=== PATIENT | male | born 1955 | race Caucasian/White ===

== ENCOUNTER 2021-04-18 13:53 | Outpatient (REF) | payer OTHER, SELFPAY ==
[2021-04-18 14:17] LABS: COVID-19 Test Negative (Negative)
== END 2021-04-18 13:54 | disposition home or self-care (01) ==
LOC: HO.LAB 13:53
PROVIDERS: Visit Provider Internal Medicine
DX: Z20.822 Contact with and (suspected) exposure to COVID-19 (principal)
CPT/HCPCS: 36415; 87635; C9803

== ENCOUNTER 2022-03-11 10:32 | Emergency (ER) | payer OTHER, SELFPAY ==
--- NOTE | ~2022-03-11 | CT_ITS ---
EXAMINATION: EXAMINATION: CTA OF THE CHEST, ABDOMEN AND PELVIS WITH AND WITHOUT CONTRAST CT angio abdomen pelvis, CT angio chest aorta INDICATION: Male of 67 years with history of Reason for Exam abd pain radiating to back COMPARISON: Most recent CT of abdomen/pelvis: 11/02/2019. DESCRIPTION: Initial noncontrast localizing pin drafting machine tender images were obtained. Timing boluses at the level of the aortic arch and abdominal aorta were calculated. Subsequently, arterial phase multidetector volumetric imaging was performed through the chest, abdomen, and pelvis following the administration of 85 mL Omnipaque 350 intravenous contrast. No contrast reaction reported Maximal intensity projection vascular imaging was produced and reviewed. Images were evaluated on independent dedicated 3-D workstation and 3-D images were reconstructed with concurrent radiologist supervision and subsequently interpreted. This CT examination was performed using dose optimization techniques as appropriate, variously including the following: *Automated exposure control. *Adjustment of mA and/or kV according to patient size (this includes techniques or standardized protocols for targeted exams where dose is matched to indication/reason for exam, i.e., extremities or head). *Use of iterative reconstruction technique. Total exam dose-length product 1173 mGy-cm FINDINGS: THORACIC AORTA AND GREAT VESSELS: There is mild ascending aortic thoracic aneurysm measured 4.9 cm without evidence of aortic dissection, penetrating ulcer or aneurysm. A normal branching 3 vessel aortic arch is seen . The great vessels are patent. Minimal vascular calcifications are noted at the origins of the great vessels without evidence of significant stenosis. Mild scattered calcified atherosclerotic disease is seen throughout the thoracic aorta. PULMONARY ARTERIES: The exam was timed in the systemic arterial phase for evaluation of the aorta which limits assessment of the pulmonary arteries. No central pulmonary embolus. ABDOMINAL AORTA: Abdominal aorta reveals no evidence of aneurysm or dissection. The aortic bifurcation appears normal. MESENTERIC VESSELS: The celiac artery is normal in caliber without evidence of significant stenosis or aneurysm. The superior mesenteric artery is normal in caliber without evidence of significant stenosis or aneurysm. There is minimal narrowing at the origin of the inferior mesenteric artery with normal contrast opacification distally. RENAL ARTERIES: There are no atherosclerotic changes . ILIAC ARTERIES: The common arteries are normal in caliber bilaterally without evidence of stenosis or aneurysm. The external iliac arteries are normal in caliber bilaterally without evidence of significant stenosis or aneurysm. NONVASCULAR: LUNG: The trachea and mainstem bronchi are patent with no intraluminal lesion. Mild dependent bilateral atelectasis. No lobar consolidation. No suspicious mass. No pulmonary nodule. PLEURA: No pneumothorax. No pleural effusion. MEDIASTINUM: Normal heart size. No pericardial effusion. No hilar or mediastinal lymphadenopathy. CHEST WALL/AXILLA: No axillary or internal mammary lymphadenopathy. No chest wall mass seen. LIVER, GALLBLADDER, AND BILIARY TREE: The liver is normal in shape, size and attenuation. No focal hepatic lesion. No intrahepatic biliary ductal dilatation. The gallbladder demonstrates no obvious pericholecystic inflammatory changes or gallbladder wall thickening. No cholelithiasis. No perihepatic ascites. PANCREAS: Normal size. No definite mass, surrounding fluid, or inflammatory changes. SPLEEN: Normal size. No focal lesion. No perisplenic ascites. ADRENAL GLANDS: Normal; no mass. KIDNEYS AND URETERS: Right kidney is unremarkable. Left kidney revealed cortical upper pole exophytic 9.4 x 8.9 cm cyst. There is lower pole 1.3 x 1.2 cm cortical cyst. No renal calculi. GASTROINTESTINAL TRACT: Stomach and small bowel are non-dilated. No colonic wall thickening or pericolonic inflammatory changes. Normal appendix present. ABDOMINAL WALL: There is small fat-containing umbilical hernia and left inguinal hernia with herniation of colonic loop. There is partial obstruction of left colonic loop in the hernia. Patient is status post repair of left inguinal hernia with marked or solid mass. Examination is significant in the left side of the scrotum. LYMPH NODES: There are bilateral inguinal superficial lymph nodes present. BLADDER: Not fully distended, limiting its complete evaluation. No bladder wall thickening. No focal mass or bladder calculi. PELVIC VISCERA: Unremarkable. OSSEOUS STRUCTURES: No acute or suspicious osseous abnormality. CT/CT angio abdomen pelvis IMPRESSION: 1. Mild ascending aortic aneurysm, without evidence of dissection or aneurysmal dilatations in the descending aorta. 2. Large inguinal hernia on the left with herniation of significant amount of bowel possibly partially incarcerated in scrotum. Communication: By this report and phone call to CHUCK Gonzalez at 2:30 PM on 03/11/2022
--- NOTE | ~2022-03-11 | CT_ITS ---
EXAMINATION: CT CERVICAL SPINE AND CT BRAIN WITHOUT CONTRAST CLINICAL INFORMATION: Syncope. COMPARISON: None TECHNIQUE: 5 mm thin axial and reformatted 2 mm thin sagittal and coronal images of brain were obtained without contrast. 3 mm thin and reformatted 2 mm thin sagittal and coronal images of cervical spine were obtained without contrast. DLP: 1289 mGy-cm. FINDINGS: BRAIN: There is no acute intra-axial, extra-axial bleed, masses or midline shift. There is a hypodensity extending from the right centrum semiovale through the posterior limb of internal capsule to the right mary jane suggesting wallerian degeneration from old injury. There is lack of infarction in anterior limb of left internal capsule. Small lacunar infarction is also seen in the right para sagittal right frontal lobe. No acute infarction seen. There is diffuse periventricular hypodensity in both cerebral hemispheres likely small vessel ischemic changes. The lateral ventricles are enlarged and so are the cortical sulci. Bone windows reveal no calvarial abnormality. There is no scalp soft tissue abnormality. Bilateral paranasal sinuses and mastoid air cells are well-aerated. CERVICAL SPINE: There is maintained cervical lordosis. The vertebral heights and alignment is normal. There is loss of C4-C5, C5-C6 disc heights. The craniovertebral junction and the C1-C2 alignment is normal. No visible acute fracture, dislocation or subluxation seen. There is moderate left C3-C4 facet joint arthropathy. Mild uncovertebral hypertrophic changes are seen at C4-C5 and C5-C6 disc levels. No acute fracture, dislocation or subluxation seen. The prevertebral soft tissues are normal. The lung apices are clear. The thyroid lobes are symmetrical and normal. The lung apices are clear. CT/CT cervical spine wo con IMPRESSION: No acute intracranial process seen. 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 No acute fracture, dislocation, or subluxation seen in cervical spine.
[2022-03-11 10:37] VITALS: BP 127/91; PULSE 86; RESP 16; TEMP 36.3; O2SAT 98; BMI 30.4
--- NOTE | 2022-03-11 11:04 | ECG_ITS ---
Test Reason : SYNCOPE Blood Pressure : / mmHG Vent. Rate : 075 BPM Atrial Rate : 075 BPM P-R Int : 244 ms QRS Dur : 082 ms QT Int : 390 ms P-R-T Axes : 037 -09 001 degrees QTc Int : 435 ms Sinus rhythm with 1st degree A-V block Borderline ECG When compared with ECG of 02-NOV-2019 15:59, FL interval has increased Referred By: Anjelica Gonzalez Electronically Signed By:EMILIO DAWSON MD
--- NOTE | 2022-03-11 11:04 | ED.GENADULT ---
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 he was sitting on his bed when this happened. He tells me that he is feeling weak and dizzy. He is unable to describe the dizziness feels like he just says he feels dizzy. He tells me that his abdomen is bothering him. He tells me he has never had anything like this happen to him before. He denies any other preceding symptoms. At this time he denies chest pain, shortness of breath, fevers, chills, vision changes, nausea, vomiting. Patient tells me he didnt hit his head. No evident signs of trauma. Onset (ago): hour(s) (2) Location: abdomen Radiation: back Severity: moderate Quality: sharp Pain Consistency: constant Relieving factors: none Exacerbating factors: none Associated symptoms: syncope Treatments prior to arrival: none Related Data Allergies Allergy/AdvReac Type Severity Reaction Status Date / Time No Known Allergies Allergy Verified 03/11/22 10:36 [No Known Allergies*] Review of Systems Review of Systems: Constitutional : No Weight loss, No Fever, No Chills, No Fatigue, No Malaise ENT/Mouth : No sore throat, No Rhinorrhea Eyes: No Eye Pain, No Swelling, No Redness Cardiovascular : No Chest Pain, No SOB, No Dyspnea on Exertion, No Orthopnea, No Edema, No Palpitations Respiratory : No Cough, No Sputum, No Wheezing Gastrointestinal : No Nausea, No Vomiting, No Diarrhea, No Constipation, + abdominal Pain, No Hematochezia, No Melena Genitourinary : No Dysuria, No Urinary Frequency, No Hematuria, Musculoskeletal : No joint pain, No Myalgias, No Joint Swelling, + back pain Skin : No Skin Lesions, No rash Neuro : No Weakness, No Numbness, No Dizziness, No Headache Psych : No Anxiety/Panic, No Depression All other systems reviewed and are negative Yes all other systems are reviewed and are negative [facility] Past Medical History Attestation statement: The following information was validated with the patient. Source: old records reviewed and nursing notes reviewed Medical History (Updated 03/11/22 @ 18:26 by CHUCK Hauser) CVA (cerebral vascular accident) Hyperlipidemia Hypertension Recurrent left inguinal hernia Surgical History (Updated 03/11/22 @ 16:54 by Deni Batista MD) S/P left inguinal herniorrhaphy Social History Social History Advance Directives: No Advance Directives Information Provided: Yes Physical Exam ED Vital Signs: Vital Signs - 24 hr 03/11/22 10:37 03/11/22 13:44 03/11/22 14:13 Temperature 97.4 F 97.9 F Pulse Rate 86 82 79 Respiratory Rate 16 14 12 Blood Pressure 127/91 H 121/92 H 113/81 Pulse Oximetry 98 98 98 03/11/22 19:56 Temperature 98.5 F Pulse Rate 86 Respiratory Rate 10 L Blood Pressure 127/85 Pulse Oximetry 97 BMI result Body Mass Index 30.4 VSS Appearance: Alert.? Oriented X3.? No acute distress.? Head: Normocephalic, atraumatic, no step-offs or deformities Eyes: Pupils equal, round and reactive to light.? ENT: Pharynx normal.? Neck: Normal inspection.? Neck supple.? CVS: Normal heart rate and rhythm.? Pulses normal.? Respiratory: No respiratory distress.? Breath sounds normal.? Abdomen: Soft and + diffusely tender, no bruit is appreciated in aortic, bilateral renal or iliac region. No palpable masses. Skin: Skin warm and dry.? Normal skin color.? Normal skin turgor.? Extremities: No lower extremity edema.? No calf ttp. 5/5 strength to bilateral upper and lower extremities Back: No midline tenderness, no C-spine tenderness, full range of motion, no CVA tenderness bilaterally Neuro: Oriented X 3.? No motor deficit.? No sensory deficit. CN 2-12 intact Course Reevaluation(s) Reevaluation #1: CBC appears to be around patient's baseline. No acute electrolyte abnormalities. COVID negative. Time: 11:30 Reevaluation #2: Chest CTA with mild ascending aortic aneurysm without evidence of dissection or aneurysmal dilation. There is a large inguinal hernia on the left with herniation of significant amount of bowel possibly partially incarcerated in the scrotum. Patient now tells me that he is having left scrotal pain. He tells me that the pain is severe in nature it comes and goes. But he has been experiencing this pain, he tells me he thinks this is contributing to his back pain. He tells me is abdominal pain has subsided. Time: 16:20 Reevaluation #3: Spoke to Dr. Batista about CT results he suspects that it is a femoral hernia. He tells me it is soft, nontender, reduces but does come back. He tells me does not need emergency repair. Patient can follow up with him outpatient. CT of head with no acute findings, discussed CT w/ Dr. Bradshaw who tells me it looks like these are all chornic findings. Patient tells me he is feeling better and would like to go home. Patient denies chest pain, shortness of breath, walking around the department without any issues. Time: 16:51 Additional Reevaluation(s): 1822 Troponin negative. Patient not complaining of chest pain or shortness of breath unlikely ACS. Patient tells me he is feeling much better. At this time patient daughter is requesting that patient be evaluated by Case Management and Physical therapy. She does not feel like patient is safe to go back home, she tells the nurse that patient is weak, he lives by himself without any help, he has left-sided deficits from a previous CVA. I explained this to the patient. He agrees. At this time I feel comfortable with this plan. At this time patient will be placed in physician observation to allow more time to be evaluated by Case Management. Medical Decision Making [facility] Narrative Medical decision making narrative: 1110 67 yo m presents w/ an episode of severe abd pain that radiated to back followed by a syncopal episode, tells me he was on his bed. Now complaining of abd pain, dizziness, weakness. Patient anticoagulated on Eliquis. No evident signs of trauma. To note patient poor historian Upon physical exam patient has stable vitals. Lungs clear. Regular rate and rhythm. Abdomen is soft and diffusely tender. No palpable lumps or masses. No audible bruits in the aortic, bilateral renal, bilateral iliac region. Patient does have a left-sided deficit from a previous CVA, normal on the right. Plan at this time is to grab a CTA of the chest, abdomen to rule out dissection. I will also get a dry scan of the head. No need for PT INR as patient is on a factor Xa inhibitor. Basic labs, urine will also be obtained. Medical Records Medical records reviewed: Yes I reviewed the patient's medical records. Lab Data Lab results reviewed: Yes I reviewed the patient's lab results. Result diagrams: 03/11/22 11:29 03/11/22 11:29 Labs: Lab Results 03/11/22 03/11/22 03/11/22 Range/Units 11:29 11:29 11:29 WBC 6.0 (4.8-10.8) X10*3/uL RBC 4.46 L (4.60-5.80) X10*6/uL Hgb 13.3 L (14.0-18.0) g/dl Hct 39.8 L (42.0-52.0) % MCV 89.2 (80.0-98.0) fL MCH 29.8 (27.0-33.0) pg MCHC 33.4 (31.0-36.0) g/dl RDW 13.2 (11.0-16.0) % Plt Count 185 (160-400) X10*3/uL MPV 9.5 (9.4-12.4) fL Immature Gran % (Auto) 0.2 (0.0-0.4) % Neut % (Auto) 67.0 (45-73) % Lymph % (Auto) 19.4 L (20-40) % Rapides % (Auto) 10.9 (2-11) % Eos % (Auto) 1.8 (0-4) % Baso % (Auto) 0.7 (0-2) % Lymph # (Auto) 1.2 (1.2-4.9) X10*3/uL Rapides # (Auto) 0.7 (0.1-1.2) X10*3/uL Eos # (Auto) 0.1 (0.0-0.4) X10*3/uL Baso # (Auto) 0.0 (0.0-0.2) X10*3/uL Abs Immat Gran (auto) 0.01 (0.00-0.03) X10*3/uL Absolute Neuts (auto) 4.0 (2.0-8.3) x10*3/uL Absolute Nucleated RBC 0.000 (0.0-0.012) X10*3/uL Nucleated RBC % (auto) 0.0 (0.0-0.2) /100WBC Sodium 137 (135-145) mmol/L Potassium 4.3 (3.3-5.1) mmol/L Chloride 104 (96-108) mmol/L Carbon Dioxide 25 (22-29) mmol/L Anion Gap 12 (12-20) BUN 16 (9-16) mg/dL Creatinine 0.76 (0.5-1.4) mg/dL Estim Creat Clear Calc 105.9 Estimated GFR > 60 Random Glucose 100 (60-115) mg/dL Calcium 9.6 (8.4-10.2) mg/dL Magnesium 1.9 (1.6-2.6) mg/dL Total Bilirubin 0.7 (0.0-1.0) mg/dL AST 23 (5-37) U/L ALT 23 (0-40) U/L Alkaline Phosphatase 48 (39-117) U/L Troponin I High Sens (<3.5-35.0) ng/L Total Protein 7.2 (6.5-8.0) g/dL Albumin 4.1 (3.5-5.0) g/dL COVID-19 ([facility]) Negative (Negative) COVID-19 Clin Com See Note 03/11/22 Range/Units 17:53 WBC (4.8-10.8) X10*3/uL RBC (4.60-5.80) X10*6/uL Hgb (14.0-18.0) g/dl Hct (42.0-52.0) % MCV (80.0-98.0) fL MCH (27.0-33.0) pg MCHC (31.0-36.0) g/dl RDW (11.0-16.0) % Plt Count (160-400) X10*3/uL MPV (9.4-12.4) fL Immature Gran % (Auto) (0.0-0.4) % Neut % (Auto) (45-73) % Lymph % (Auto) (20-40) % Rapides % (Auto) (2-11) % Eos % (Auto) (0-4) % Baso % (Auto) (0-2) % Lymph # (Auto) (1.2-4.9) X10*3/uL Rapides # (Auto) (0.1-1.2) X10*3/uL Eos # (Auto) (0.0-0.4) X10*3/uL Baso # (Auto) (0.0-0.2) X10*3/uL Abs Immat Gran (auto) (0.00-0.03) X10*3/uL Absolute Neuts (auto) (2.0-8.3) x10*3/uL Absolute Nucleated RBC (0.0-0.012) X10*3/uL Nucleated RBC % (auto) (0.0-0.2) /100WBC Sodium (135-145) mmol/L Potassium (3.3-5.1) mmol/L Chloride (96-108) mmol/L Carbon Dioxide (22-29) mmol/L Anion Gap (12-20) BUN (9-16) mg/dL Creatinine (0.5-1.4) mg/dL Estim Creat Clear Calc Estimated GFR Random Glucose (60-115) mg/dL Calcium (8.4-10.2) mg/dL Magnesium (1.6-2.6) mg/dL Total Bilirubin (0.0-1.0) mg/dL AST (5-37) U/L ALT (0-40) U/L Alkaline Phosphatase (39-117) U/L Troponin I High Sens < 3.5 (<3.5-35.0) ng/L Total Protein (6.5-8.0) g/dL Albumin (3.5-5.0) g/dL COVID-19 ([facility]) (Negative) COVID-19 Clin Com ECG Data Attestation: I personally reviewed and interpreted this ECG as follows: Prior ECG tracings: available for review Interpretation: Ventricular rate of 75, [place] prolonged, QRS normal, QT/QTC normal. No ST elevations or inversions concerning for ischemia. When compared to EKG from October 2019 patient does have an increase [place] interval resulting in a 1st degree AV block. Critical Care Time Critical Care Time Critical Care Time: No Discharge Plan Discharge Clinical Impression: Syncope, Inguinal hernia, Weakness, First degree AV block, Ascending aortic aneurysm Patient Disposition: Still a Patient Additional Instructions: Take your medications as prescribed. If you were prescribed antibiotics today, it is important that you take your medication to their entirety, do not skip any doses, do not finish them early. Follow-up with your primary care provider this week. Please follow up with surgery for inguinal hernia. You were found to have an aortic aneurysm that will require monitoring, follow-up with her PCP or Cardiology. Return to the emergency department with new or worsening symptoms. Such as fevers, chills, chest pain, shortness of breath, nausea, vomiting, dizziness, headache, vision changes, lethargy In case of emergency call 911 CT/CT head/brain wo con IMPRESSION: No acute intracranial process seen. 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 No acute fracture, dislocation, or subluxation seen in cervical spine. CT/CT angio chest aorta IMPRESSION: 1. Mild ascending aortic aneurysm, without evidence of dissection or aneurysmal dilatations in the descending aorta. ? 2. Large inguinal hernia on the left with herniation of significant amount of bowel possibly partially incarcerated in scrotum. Communication: By this report and phone call to CHUCK Gonzalez at 2:30 PM on 03/11/2022 ? ?
[2022-03-11 11:33] LABS: MANUAL DIFF FLAG NO
[2022-03-11 11:35] LABS: Basophils Percent Auto 0.7 % (0-2); Eosinophils Absolute Auto 0.1 X10*3/uL (0.0-0.4); Eosinophils Percent Auto 1.8 % (0-4); Hematocrit 39.8 % (42.0-52.0); Hemoglobin 13.3 g/dl (14.0-18.0); Imm Gran Abs Auto 0.01 X10*3/uL (0.00-0.03); Imm Gran Pct Auto 0.2 % (0.0-0.4); Lymphocytes Absolute Auto 1.2 X10*3/uL (1.2-4.9); Lymphocytes Percent Auto 19.4 % (20-40); Mean Corpuscular HGB Conc 33.4 g/dl (31.0-36.0); Mean Corpuscular Hemoglobin 29.8 pg (27.0-33.0); Mean Corpuscular Volume 89.2 fL (80.0-98.0); Mean Platelet Volume 9.5 fL (9.4-12.4); Monocytes Absolute Auto 0.7 X10*3/uL (0.1-1.2); Monocytes Percent Auto 10.9 % (2-11); Platelet Count 185 X10*3/uL (160-400); Red Blood Count 4.46 X10*6/uL (4.60-5.80); Red Cell Distribution Width 13.2 % (11.0-16.0)
[2022-03-11 12:02] LABS: Alanine Aminotransferase 23 U/L (0-40); Albumin Level 4.1 g/dL (3.5-5.0); Alkaline Phosphatase 48 U/L (39-117); Anion Gap 12 (12-20); Aspartate Amino Transferase 23 U/L (5-37); Bilirubin Total 0.7 mg/dL (0.0-1.0); Blood Urea Nitrogen 16 mg/dL (9-16); Calcium 9.6 mg/dL (8.4-10.2); Carbon Dioxide 25 mmol/L (22-29); Chloride 104 mmol/L (96-108); Creatinine Clr Calc Pharmacy 105.9; Estimated Glomerular Filt Rate > 60; Glucose Random 100 mg/dL (60-115); Magnesium 1.9 mg/dL (1.6-2.6); Potassium 4.3 mmol/L (3.3-5.1); Sodium 137 mmol/L (135-145); Total Protein 7.2 g/dL (6.5-8.0)
[2022-03-11 12:08] LABS: COVID-19 Test Negative (Negative); IDNOW Serial# 16C4AD1C
[2022-03-11] MEDS: iohexoL 350 MG/ML 100 ML INFUS..BTL 85 ML IV (12:39)
[2022-03-11] MEDS: Ketorolac Tromethamine 15 MG/ML VIAL 30 MG IVPUSH (12:48)
[2022-03-11 13:44] VITALS: BP 121/92; PULSE 82; RESP 14; O2SAT 98
[2022-03-11 14:13] VITALS: BP 113/81; PULSE 79; RESP 12; TEMP 36.6; O2SAT 98
--- NOTE | 2022-03-11 16:47 | P.CONGS_ITS ---
History of Present Illness Consult details Consult date: 03/11/22 Reason for consult: hernia Narrative: 67-year-old male patient presenting with complaints of syncope x2 today while at home. Patient has a prior history of CVA with left-sided weakness. He also has a previous history of a left inguinal hernia which was repaired x2, possibly at [facility] although he is not completely sure. He reports that the hernia recurred shortly after the repair. He was found on CT of the abdomen to have possible incarcerated left inguinal hernia. Attempts to reduce the hernia were unsuccessful in the emergency department. Surgical consultation requested for further management of left inguinal hernia. Patient denies current pain in the left testicle or groin. He does occasionally have some discomfort but it resolves spontaneously. He denies nausea or vomiting. Review of Systems Constitutional: Constitutional: Denies chills, Denies fever(s), Denies headach e(s), Denies poor appetite and Reports weakness ENT: Reports dizziness and Denies headache(s) Cardiovascular: Cardiovascular: Denies chest pain, Denies rapid heart rate, Denies palpitations and Denies slow heart rate Respiratory: Respiratory: Denies chest congestion, Denies cough, Denies pain on inspiration and Denies wheezing Gastrointestinal: Gastrointestinal: Denies abdominal pain, Denies bloating, Denies change in stool character, Denies constipation, Denies diarrhea, Denies nausea, Denies vomiting and Denies hematemesis Musculoskeletal: Musculoskeletal: Reports as per HPI, Reports abnormal gait, Denies back pain, Denies arthralgias and Denies joint swelling Integumentary/Breasts: Skin/Breast: Denies change in pigmentation, Denies erythema and Denies rash Neurologic: Reports abnormal gait, Reports dizziness, Denies headache(s) and Reports weakness Psychiatric: Psychiatric: Denies anxiety and Denies depression Endocrine: Endocrine: Denies palpitations Hematologic/Lymphatic: Hematologic/Lymphatic: Denies easy bleeding, Denies easy bruising and Denies lymphadenopathy Allergic/Immunologic: Allergic/Immunologic: Denies wheezing PMFSH Past Medical History Medical History (Updated 03/11/22 @ 16:54 by Deni Batista MD) CVA (cerebral vascular accident) Hyperlipidemia Hypertension Recurrent left inguinal hernia Functional capacity: uses cane/walker Surgical History Surgical History (Updated 03/11/22 @ 16:54 by Deni Batista MD) S/P left inguinal herniorrhaphy Social History Social History Advance Directives: No Advance Directives Information Provided: Yes Meds Allergies Allergy/AdvReac Type Severity Reaction Status Date / Time No Known Allergies Allergy Verified 03/11/22 10:36 [No Known Allergies*] Physical Exam Vital Signs: Vital Signs: Last Vital Signs Temp 97.9 F 03/11/22 14:13 Pulse 79 03/11/22 14:13 Resp 12 03/11/22 14:13 BP 113/81 03/11/22 14:13 Pulse Ox 98 03/11/22 14:13 BMI result Body Mass Index 30.4 Const: General: cooperative and comfortable Nutritional Appearance: well nourished Orientation/consciousness: patient oriented x3 Limitations: ambulation with cane HEENT: Head: Yes normocephalic and Yes atraumatic Eyes: Sclerae: sclerae normal EOM: EOMs intact bilaterally Neck: Neck: Yes normal visual inspection Resp: Effort & Inspection: normal respiratory effort, no cough, no respiratory distress and no stridor Cardio: Jugular venous distension: no JVD GI: Other: He is identified left inguinal hernia which is soft and easily reduces with light pressure. There is no tenderness to palpation. No redness is noted in the overlying skin. There is no evidence of hematoma or seroma. Hernia returns once pressure was released. No evidence of incarceration or strangulation. Inspection: Yes normal to inspection Palpation (GI): Soft to palpation, nontender, no guarding and not rigid Abdomen image: 1. Recurrent left inguinal hernia Skin: General skin exam: dry skin Rashes: no rashes Neuro: General: patient oriented x3 and no focal motor deficits Extrem: General: Yes full ROM and Yes no clubbing, cyanosis or edema Psych: Appearance: grossly normal Results Labs Result diagrams: 03/11/22 11:29 03/11/22 11:29 Labs: Abnormal lab results 03/11/22 Range/Units 11:29 RBC 4.46 L (4.60-5.80) X10*6/uL Hgb 13.3 L (14.0-18.0) g/dl Hct 39.8 L (42.0-52.0) % Lymph % (Auto) 19.4 L (20-40) % Short CBC 03/11/22 Range/Units 11:29 WBC 6.0 (4.8-10.8) X10*3/uL Hgb 13.3 L (14.0-18.0) g/dl Hct 39.8 L (42.0-52.0) % Plt Count 185 (160-400) X10*3/uL BMP 03/11/22 11:29 Sodium 137 Potassium 4.3 Chloride 104 Carbon Dioxide 25 BUN 16 Creatinine 0.76 Calcium 9.6 Liver Function 03/11/22 Range/Units 11:29 Total Bilirubin 0.7 (0.0-1.0) mg/dL AST 23 (5-37) U/L ALT 23 (0-40) U/L Alkaline Phosphatase 48 (39-117) U/L Albumin 4.1 (3.5-5.0) g/dL All other labs normal. Assessment and Plan (1) Recurrent left inguinal hernia: Status: Acute Plan 67-year-old male patient presenting with complaints of syncope found to have a left inguinal hernia which he has known about and is not new. He has had 2 previous repairs both of which have recurred. I discussed repair of this left inguinal hernia he is not interested in undergoing surgery at this time. The hernia does not require emergency repair as it is reducible and not incarcerated or strangulated. He is welcome to follow up my office should he desire repair. This could be done on an elective basis. Procedures Date of Service Date of Service: 03/11/22
[2022-03-11] MEDS: Morphine Sulfate 4 MG/ML CARTRIDGE IVPUSH (17:55)
--- NOTE | 2022-03-11 18:01 | PC.NURSE ---
Daughter who is the HCP, her name is Chong Johns and she stated that her dad is not mentally capable to make his own decisions or fully understand what is happening. She would like to be called with any updates from us especially if he needs surgery. Her number is . I will pass on this information to the provider and next shift.
[2022-03-11 18:19] LABS: Troponin-I High Sensitivity < 3.5 ng/L (<3.5-35.0)
--- NOTE | 2022-03-11 19:08 | PC.NURSE ---
Dtr Chong is very concerned about having her dad come home right now due to his lack of mental capabilities. Spoke with provider about this and she will make him a physical Observation? CM.. Plan will be surgery for the hernia that provider could reduce but it would pop back out immed. 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 Report passed on to RN.
[2022-03-11 19:56] VITALS: BP 127/85; PULSE 86; RESP 10; TEMP 36.9; O2SAT 97
[2022-03-11 22:25] VITALS: BP 101/77; PULSE 84; RESP 10; TEMP 36.5; O2SAT 93
--- NOTE | 2022-03-11 23:45 | PC.NURSE ---
Patient's daughter came in and asked why her father was still here. Daughter was informed that the nurse was told that she was concerned about her father being able to care for himself. The daughter stated that she never said or implied that. She insisted that her father was independent and that she wanted him to be discharged home. [employer]ING [employer] re-affirmed that daughter wanted patient to be discharged home. Patient will be discharged at this point
--- NOTE | 2022-03-12 08:26 | MHC.CM.ED ---
Received case management consult overnight. Patient was d/c'd home with daughter prior to being seen by case management.
== END 2022-03-11 23:44 | disposition home or self-care (01) ==
PROVIDERS: Physician Assistant; Emergency Provider Emergency Medicine
DX: R55 Syncope and collapse (principal); K40.91 Unilateral inguinal hernia, without obstruction or gangrene, recurrent; I44.0 Atrioventricular block, first degree; I71.4 Abdominal aortic aneurysm, without rupture; I69.354 Hemiplegia and hemiparesis following cerebral infarction affecting left non-dominant side; I10 Essential (primary) hypertension; Z79.01 Long term (current) use of anticoagulants; Z20.822 Contact with and (suspected) exposure to COVID-19
CPT/HCPCS: 36415; 70450; 71275; 72125; 74174; 80053; 83735; 84484; 85025; 87635; 93005; 96374; 96375; 99284; J1885; J2270; Q9967

== ENCOUNTER → 2022-04-09 11:08 | Outpatient (BNVA) | payer OTHER, SELFPAY | PROVIDERS: Visit Provider Surgery | DX: K40.91 Unilateral inguinal hernia, without obstruction or gangrene, recurrent (principal); I61.9 Nontraumatic intracerebral hemorrhage, unspecified; G81.94 Hemiplegia, unspecified affecting left nondominant side; I10 Essential (primary) hypertension; E78.5 Hyperlipidemia, unspecified; Z79.01 Long term (current) use of anticoagulants; Z99.89 Dependence on other enabling machines and devices | CPT/HCPCS: 99202 ==

== ENCOUNTER → 2022-05-11 15:10 | Outpatient (BNVA) | payer OTHER, SELFPAY | PROVIDERS: PCP Nurse Practitioner Family; Visit Provider Surgery | DX: K40.91 Unilateral inguinal hernia, without obstruction or gangrene, recurrent (principal); I69.954 Hemiplegia and hemiparesis following unspecified cerebrovascular disease affecting left non-dominant side; I10 Essential (primary) hypertension; E78.5 Hyperlipidemia, unspecified; Z79.01 Long term (current) use of anticoagulants; Z99.89 Dependence on other enabling machines and devices | CPT/HCPCS: 99212 ==